=== PATIENT | female | born 1950 | race Caucasian/White ===

== ENCOUNTER 2018-02-10 09:30 | Inpatient (IN) ==
--- NOTE | 2018-02-17 06:49 | MH ---
cc: Johnson Cordon MD, Rohit K MD Lee, Chee DATE OF ADMISSION: 02/17/2018 ADMITTING DIAGNOSIS: Lumbar degenerative disk disease. HISTORY OF PRESENT ILLNESS: This is a 67-year-old female who presented to us for evaluation of low back pain and left leg pain. She states that at her last evaluation on 09/15/2017 we referred her to physical therapy, and she states that this exacerbated her pain. Again, she states that she has previously had surgery in 2014, which was an L4 to S1 lumbar fusion with bilateral instrumentation. She states the surgery was done in [place] and she did well after the surgery until about 2 years ago. She states that 2 years ago, she moved from [place] to [place] and was doing a lot of painting of trim which required a lot of bending for long periods of time and she states that she had difficulty standing after or walking after this. She states that she wore a back brace and the pain eventually settled down, but she has continued to have low back pain. She states that she moved to [facility] and had previously lived in [place] for 5 years and had pain management with a physician in [place]. She states that she would have 1 injection every 3 months for the last 2 years and they eventually recommended a spinal stimulator because the injections were no longer helping. She states that in 03/2017, she was spending time with her brother, doing a lot of walking and at night she had pins and needles in her arms and legs. She complains of pain in bilateral buttocks radiating into the posterior left lateral leg and stabbing sensation on top of her left foot. She states that if she lies down she has improvement and other times she has severe pain and even sitting will exacerbate it. She recently attended physical therapy and states that this aggravated her symptoms, especially at nighttime. She states that she has increased stabbing pain in the calf and foot area. She is wanting to proceed with surgical intervention. PAST MEDICAL HISTORY: Significant for lumbar fusion, hyperlipidemia, hypothyroidism, gastroesophageal reflux disease, migraines. CURRENT MEDICATIONS: 1. Alrex 0.2% eye drops. 2. Atorvastatin 40 mg. 3. Dicyclomine 10 mg. 4. Furosemide 40 mg. 5. Levothyroxine 150 mcg. 6. Metoprolol ER. 7. Omeprazole 20 mg. 8. Potassium chloride 20 mEq. 9. Sumatriptan 50 mg. 10. Tramadol 50 mg. 11. Tizanidine 4 mg. 12. Triamterene 37.5/hydrochlorothiazide 25 mg. ALLERGIES: SHE IS ALLERGIC TO COBALT MOLD NEOMYCIN SULFA AND THIMEROSAL. FAMILY HISTORY: Her father is at age 79, had COPD. Her mother is at 78, had congestive heart failure. Her sister is at 69, had congestive heart failure and COPD. SOCIAL HISTORY: She is a former smoker. She quit in 1987. PAST SURGICAL HISTORY: She has had carpal tunnel surgery in 2015, lumbar spinal fusion L4 to S1 in 2004, right foot neuroma removal in 2014, left hip surgery in 2011, thyroid surgery in 1968 and 2008, left wrist surgery in 2002 and 2007, right knee arthroscopy in 2004. REVIEW OF SYSTEMS: CONSTITUTIONAL: She denies any fever or chills. EARS, NOSE AND THROAT: No pharyngitis exudates or bloody drainage from her nose. CARDIOVASCULAR: She denies any chest pain or palpitations. RESPIRATORY: No cough or shortness of breath. GASTROINTESTINAL: No nausea, vomiting, or abdominal pain. GENITOURINARY: No dysuria, hematuria. MUSCULOSKELETAL: Positive for low back pain. SKIN: No rashes or pruritus. NEUROLOGIC: No difficulty with speech or memory. GASTROINTESTINAL: No nausea, vomiting, abdominal pain. HEMATOLOGIC: No bruising or bleeding tendencies. ENDOCRINE: No polyuria or polydipsia. PHYSICAL EXAMINATION: HEENT: Head is normocephalic, atraumatic. NECK: Supple. No carotid bruits. LUNGS: Clear to auscultation bilaterally. HEART: Regular rate and rhythm. Normal S1, S2. ABDOMEN: Soft, nontender, positive bowel sounds. SKIN: No cyanosis or edema. MUSCULOSKELETAL: She has 5/5 strength in the lower extremities. She ambulates without any assistive device. NEUROLOGIC: She is awake, alert, and oriented. Cranial nerves 2-12 appear grossly intact. Speech is fluent. Comprehension is good. IMPRESSION: A 67-year-old female with a chronic history of low back pain with radiation to bilateral buttocks and left posterior thigh and calf and dorsal aspect of the left foot. She has a history of L4 to S1 bilateral pedicle screw fixation with fusion and interbody cage placement in [place], [place] in 2014. Her symptoms did improve, but not completely resolve subsequent to her surgery and worsened for the past year or so. She has been to physical therapy, which exacerbated her pain. She has also undergone pain management, which also did not help. She has a previous L4-S1 fusion with pedicle screws and cages in place. She has adjacent segment disk disease with L3-L4 spinal stenosis from a combination of central disk herniation and facet hypertrophy along with degenerative disk disease. She also has degenerative changes at the disk at L2-L3 with no significant spinal stenosis. She is requesting surgical intervention for her lumbar spine since she has tried conservative treatment measures and has failed these. PLAN: We have discussed treatment options with the patient, which include continued conservative measures versus surgical intervention. The patient states that she has tried conservative treatment measures with physical therapy and pain management and she is currently miserable with her level of discomfort. She has requested to proceed with surgical intervention. The patient is wanting to proceed with a lumbar fusion. We have discussed with her an L3-L4 interbody fusion with cage and pedicle screw fixation with removal of her L4 to S1 pedicle screws. The procedure as well as the risks, benefits, alternatives, and recovery time were explained in great detail with the patient. We discussed the risks involved with surgery to include, but not limited to bleeding, infection, muscle weakness, voice hoarseness, difficulty swallowing, heart attack, stroke, blood clots, nonfusion, scar tissue formation, among others. The patient states that she understands the procedure as well as the risks of all that she has requested to proceed and she was therefore scheduled accordingly. Dictated by FELICIA Hinojosa MD DEBBIE BarkleyK/ct , 06:17 PM , 06:33 PM
[2018-02-17] MEDS ORDERED: Sodium Chlor 0.9% Inj 500 ML IV.SIG SCH (07:00)
[2018-02-17] MEDS ORDERED: Metoprolol Tartrate 25 MG Tablet PO SCH (07:00)
[2018-02-17] MEDS ORDERED: ceFAZolin 2 GM Premix Inj 2 GM/100 ML BAG IV.SIG SCH (07:00)
[2018-02-17] MEDS ORDERED: Chlorhexidine Gluconate 2% 1 Pack (2 Cloths) TOPICAL SCH (07:00)
[2018-02-17] MEDS ORDERED: Lidocaine PF 1% Inj 5 ML Syringe INFILTRATN ONE ×2 (08:30)
[2018-02-17] MEDS ORDERED: Bupivacaine/Epinephrine 0.5% Inj 50 ML Vial ONE (08:35)
[2018-02-17] MEDS ORDERED: Thrombin Topical Soln 5,000 UNIT Vial TOPICAL ONE (08:35)
[2018-02-17] MEDS ORDERED: Gelatin Size 100 Topical Foam ONE (08:35)
[2018-02-17] MEDS ORDERED: Glycopyrrolate Inj 1 MG/5 ML Syringe IV.PUSH ONE (11:30)
[2018-02-17] MEDS ORDERED: Neostigmine Inj 5 MG/5 ML Syringe IV.PUSH ONE (11:30)
[2018-02-17] MEDS ORDERED: Phenylephrine/NS 1000 MCG/10ML Syringe OTHER ONE (11:30)
[2018-02-17] MEDS ORDERED: Potassium Chlor 20 mEq Premix 20 MEQ/100 ML PIGGYBACK IV.SIG PRN (12:13)
[2018-02-17] MEDS ORDERED: Aluminum/Magnesium/Simethacone Susp 30 ML UDC PO PRN (12:13)
[2018-02-17] MEDS ORDERED: Bisacodyl 10 MG Supp RECTAL PRN (12:13)
[2018-02-17] MEDS ORDERED: Acetaminophen 325 MG Tablet PO PRN (12:13)
[2018-02-17] MEDS ORDERED: Magnesium Sulfate Inj 2 GM in Sodium Chlor 0.9% Inj 96 ML IV.SIG PRN (12:13)
--- NOTE | 2018-02-17 12:29 | P.OP ---
- Preoperative Diagnosis (1) Disc degeneration, lumbar (2) Lumbar stenosis with neurogenic claudication (3) Facet arthropathy, lumbar (4) Fusion of lumbosacral spine (5) Failed back syndrome of lumbar spine (6) Instrumentation failure of anterior column of spine Date of procedure: 02/17/18 Procedure: Lumbar L3-4 transforaminal decompression with interbody fusion; removal of malpositioned left L4-S1 pedicle screws; L3-4 pedicle screw fixation; L3-4 interbody cage placement; microsurgical technique Anesthesia: GETA Surgeon: Johnson Cordon MD Preparation Department Supervisor: Marianna Kingsley Estimated blood loss (mL): 150 Operation and Findings: Following initiation of general endotracheal anesthesia, the patient had a Benavidez catheter placed along with sequential compression devices. A gram of Ancef was administered intravenously and he was turned in a prone position on a Damon frame, on a Crow table, and all pressure points adequately padded. The lumbosacral region was then prepped with Chloraprep and sterilely draped with Ioban along the usual sterile draping. A midline skin incision using the previous incision site was then made extending from the L3-S1 levels after infiltrating the skin with 0.5% Marcaine with epinephrine solution extending down through the fascia. The muscle fibers were split using avascular fatty plane and detached from the underlying facets, transverse process and lateral portion of lamina on the left side L3-4 levels and a self-retaining retractor used for exposure. Intraoperative fluoroscopy was also used for level of confirmation along with microscope magnification for further dissection. There was significant facet and ligamentum flavum hypertrophy noted at the L3-4 level. Left L3-4 facet was resected with a drill bit along with the lamina and there was severe foraminal and lateral recess stenosis from hypertrophied ligamentum flavum and facet which were decompressed. There was disc degeneration along with disc protrusion also leading to the foraminal stenosis. Epidural hemostasis was achieved with bipolar cautery and Gelfoam with thrombin. Subsequently entered into the disc space at the L3-4 level with a # 15 blade and glenna were used for discectomy. I then placed PEEK cage packed with local autograft bone and more local autograft bone was packed adjacent to the cage in interspace for added interbody fusion. With placement of the cage, I was able to distract the interspace and opened up the foramen further bilaterally. Patient had a previous history of L4-5 and L5-S1 interbody and posterior lateral fusion with bilateral pedicle screw fixation. The left L4 pedicle screw was malpositioned and lateral to the pedicle/vertebral body. The left L4, L5 and S1 pedicle screws were then removed and solid fusion was confirmed. Subsequently in order to facilitate the fusion and provide stabilization, pedicle screw fixation was undertaken using [place] spine screws on entry point at the left L3 and the more medial trajectory at the left L4 undertaken at the junction of the transverse process and facet. Subsequently using AP and lateral fluoroscopy tap and screw placement. The screws were then connected with a ean and locked in place with caps. The construct appeared very secure at this point. The area was then copiously irrigated with Vancomycin solution and powder. The retractors were removed and the bipolar cautery used for hemostasis. The muscle fascia was then approximated using 2-0 Vicryl interrupted stitches and then 3-0 Vicryl subcuticular stitches also placed in interrupted fashion. The final skin closure was completed with john. A sterile dressing was then applied. The patient then turned in supine position, extubated and taken to recovery room. There were no intraoperative complications. All sponge and needle counts were correct at the end of procedure. Estimated blood loss about 150 ml.
[2018-02-17] MEDS ORDERED: fentaNYL Citrate Inj 100 MCG/2 ML Ampul ONE (12:47)
[2018-02-17] MEDS ORDERED: *Meperidine Inj 25 MG/ML Vial PERIprocedural Use ONLY ONE (13:17)
[2018-02-17 13:22] LABS: Baso % (Auto) 0.6 % (0.0-2.0); Eos # (Auto) 0.1 th/mm3 (0.0-0.4); Eos % (Auto) 1.4 % (0.0-4.0); Hematocrit 31.3 % (35.0-46.0); Hemoglobin 10.7 gm/dL (11.6-15.3); Lymph # (Auto) 1.6 th/mm3 (1.0-4.8); Lymph % (Auto) 22.4 % (9.0-44.0); Mean Corpuscular HGB Conc 34.3 % (32.0-36.0); Mean Corpuscular Hemoglobin 31.5 pg (27.0-34.0); Mean Corpuscular Volume 91.8 fL (80.0-100.0); Mean Platelet Volume 8.2 fL (7.0-11.0); Mono # (Auto) 0.4 th/mm3 (0.0-0.9); Mono % (Auto) 5.9 % (0.0-8.0); Neut # (Auto) 4.9 th/mm3 (1.8-7.7); Neut % (Auto) 69.7 % (16.0-70.0); Platelet Count 208 th/mm3 (150-450); Red Cell Distribution Width 15.4 % (11.6-17.2)
[2018-02-17 13:40] LABS: Calcium 7.4 mg/dL (8.5-10.1); Carbon Dioxide 33.6 meq/L (21.0-32.0); Magnesium 2.2 mg/dL (1.5-2.5)
--- NOTE | 2018-02-17 13:51 | XR ---
EXAM DATE: 02/17/2018 1:06 PM EDT AGE/SEX: 67 years / Female INDICATIONS: Fusion L3,L4 with screws and ean placement and removal of screws and ean from L4 to S1 with replacement of the L4 screw. CLINICAL DATA: This is the patient's initial encounter. Patient reports that signs and symptoms have been present for 1 day and indicates a pain score of Nonresponsive. MEDICAL/SURGICAL HISTORY: None. Fusion, lumbar. COMPARISON: No prior exams available for comparison. FINDINGS: Patient is status post lumbar spinal surgery with fusion. There appear to be pedicular screws on the left at L3 and L4. There are pedicular screws on the right at L4, L5 and S1. The hardware appears to be intact. There is good alignment of the lower lumbar spine and fusion. CONCLUSION: Good position and alignment on this postoperative study. Electronically signed by: Shahbaz Vaughn MD 02/17/2018 1:50 PM EDT
[2018-02-17] MEDS ORDERED: METRONIDAZOLE 1% TOPICAL PRN (14:00)
[2018-02-17 14:04] LABS: Total Protein 5.9 g/dL (6.4-8.2)
[2018-02-17 14:10] LABS: Potassium 2.6 meq/L (3.5-5.1)
[2018-02-17] MEDS: Morphine Inj 4 MG/ML Vial IV.PUSH PRN (17:06)
[2018-02-17] MEDS: Potassium Chlor 20 mEq Premix 20 MEQ/100 ML PIGGYBACK IV.SIG SCH ×2 (17:07→22:10)
[2018-02-17] MEDS ORDERED: Zolpidem Tartrate 5 MG Tablet PO PRN (21:00)
[2018-02-17] MEDS: Senna/Docusate Sodium 8.6/50 MG Tablet PO SCH (22:02)
[2018-02-18] MEDS: Levothyroxine 150 MCG Tablet PO SCH (06:11)
[2018-02-18] MEDS: Menthol 5.8 MG Lozenge BUCCAL PRN (06:13)
[2018-02-18 07:58] LABS: Calcium 7.3 mg/dL (8.5-10.1); Carbon Dioxide 32.8 meq/L (21.0-32.0); Potassium 4.3 meq/L (3.5-5.1)
[2018-02-18] MEDS: Senna/Docusate Sodium 8.6/50 MG Tablet PO SCH ×2 (08:44→21:04)
[2018-02-18] MEDS: Pantoprazole Sodium 20 MG DR Tablet PO SCH (08:45)
[2018-02-18] MEDS: Furosemide 40 MG Tablet PO SCH (08:55)
[2018-02-18] MEDS ORDERED: TRIAMTERENE 25 MG PO SCH (09:00)
--- NOTE | 2018-02-18 09:35 | P.PNNS ---
Subjective Interval history: Pt s/p Lumbar L3-4 transforaminal decompression with interbody fusion; removal of malpositioned left L4-S1 pedicle screws; L3-4 pedicle screw fixation; L3-4 interbody cage placement on 02/18/18. She complains of migraine headache and states she takes medication for this and was just given some by RN. No radiculopathy or paresthesias in LEs. She complains of incision pain but controlled with pain medication. <Main Cespedes - Last Filed: 02/18/18 09:26> Physical Exam Vital signs: Vital Signs 02/17/18 12:41 02/17/18 12:45 02/17/18 13:00 Temperature 97.4 F L Pulse Rate 67 68 73 Respiratory Rate 12 15 16 Blood Pressure 111/53 L 105/55 L 134/61 Pulse Oximetry 100 100 100 02/17/18 13:15 02/17/18 13:30 02/17/18 14:00 Temperature 97.1 F L Pulse Rate 70 70 72 Respiratory Rate 16 15 17 Blood Pressure 118/57 L 118/57 L 137/67 Pulse Oximetry 100 100 100 02/17/18 15:00 02/17/18 15:08 02/17/18 15:36 Temperature Pulse Rate 79 83 Respiratory Rate 22 12 18 Blood Pressure 135/77 129/64 Pulse Oximetry 94 L 97 02/17/18 16:00 02/17/18 20:00 02/17/18 21:33 Temperature 98.3 F 98.7 F Pulse Rate 81 91 H Respiratory Rate 17 17 Blood Pressure 104/55 L 116/70 Pulse Oximetry 99 98 97 02/17/18 22:02 02/18/18 00:00 02/18/18 04:00 Temperature 97.9 F 99.1 F Pulse Rate 54 L 95 H Respiratory Rate 18 17 17 Blood Pressure 111/56 L 117/58 L Pulse Oximetry 98 97 02/18/18 06:11 Temperature Pulse Rate Respiratory Rate 18 Blood Pressure Pulse Oximetry Intake & Output 02/17/18 02/18/18 02/18/18 18:59 06:59 18:59 Intake Total 2578 / 2578 1022 / 1022 1000 / 1000 Output Total 1000 / 1000 Balance 1578 / 1578 1022 / 1022 1000 / 1000 Weight 90.7 kg Intake: IV 1578 / 1578 1022 / 1022 1000 / 1000 NS + KCl 20 mEq Inj 1,000 ML @ 278 / 278 722 / 722 1000 / 1000 100 mls/hr IV.CONT .Q10H JOSEF Rx #:[id number] LR 1000 mL Inj 1,000 ML @ 30 1000 / 1000 mls/hr IV.SIG .Q24H JOSEF Rx#: [id number] KCl 20 mEq Premix Inj 20 meq In 100 / 100 200 / 200 100 ml @ 50 mls/hr IV.SIG Q2H JOSEF Rx#:[id number] Ancef 2 GM Premix Inj 2 gm In 100 / 100 100 ml @ 200 mls/hr IV.SIG [employer] JOSEF Rx#:[id number] Ancef Inj 1,000 MG In NS Inj 100 / 100 100 / 100 100 ML @ 200 mls/hr IV.SIG Q8H JOSEF Rx#:[id number] Anesthesia Amount 1000 / 1000 Output: Estimated Blood Loss 100 / 100 Urine Amount (Catheter) 900 / 900 Indwelling Urethral Catheter 900 / 900 Other: Date of Last Bowel Movement 02/16/18 02/16/18 Weight On Admission 90.7 kg - Constitutional no acute distress - Routine HEENT Exam Head: Present: normocephalic, atraumatic Eye: Present: PERRL. Absent: conjunctival icterus ENT: Present: oropharynx clear - Routine Neck Exam Present: trachea midline - Routine Respiratory Exam Present: CTA bilaterally. Absent: respiratory distress, rhonchi, wheezes - Routine Cardiovascular Exam Present: RRR, S1, S2. Absent: murmur - Routine Abdominal Exam Present: soft, normoactive bowel sounds. Absent: tenderness, distended - Routine Skin Exam Absent: cyanosis, erythema Comments: Incision is clean and dry with john in place. New bandage applied. - Routine Neurological Exam Present: alert, oriented X3, moving all extremities, normal speech. Absent: sensory deficit, motor deficit, altered mental status - Detailed Neurological Exam: Coma Scale Eye Opening: Spontaneous Verbal Response: Oriented Motor Response: Obey commands Azri Coma Scale Total: 15 - Routine Psychiatric Exam Present: normal affect, cooperative. Absent: agitated - Urinary Catheter Management Indwelling Urethral Catheter Cath placed during this visit: yes Reason for continuing: Other continuation reason Insertion date: 02/17/18 Insertion time: 08:40 <Main Cespedes - Last Filed: 02/18/18 09:26> Vital signs: Vital Signs 02/17/18 20:00 02/17/18 21:33 02/17/18 22:02 Temperature 98.7 F Pulse Rate 91 H Respiratory Rate 17 18 Blood Pressure 116/70 Pulse Oximetry 98 97 02/18/18 00:00 02/18/18 04:00 02/18/18 06:11 Temperature 97.9 F 99.1 F Pulse Rate 54 L 95 H Respiratory Rate 17 17 18 Blood Pressure 111/56 L 117/58 L Pulse Oximetry 98 97 02/18/18 08:00 02/18/18 12:00 02/18/18 16:00 Temperature 99.3 F 99 F 98.7 F Pulse Rate 94 H 87 84 Respiratory Rate 16 18 18 Blood Pressure 131/68 137/62 119/55 L Pulse Oximetry 94 L 96 91 L Intake & Output 02/18/18 02/18/18 02/19/18 06:59 18:59 06:59 Intake Total 1022 / 1022 1340 / 1340 Output Total 600 / 600 Balance 1022 / 1022 740 / 740 Intake: IV 1022 / 1022 1100 / 1100 NS + KCl 20 mEq Inj 1,000 ML @ 722 / 722 1000 / 1000 100 mls/hr IV.CONT .Q10H JOSEF Rx #:[id number] KCl 20 mEq Premix Inj 20 meq In 200 / 200 100 ml @ 50 mls/hr IV.SIG Q2H JOSEF Rx#:[id number] Ancef Inj 1,000 MG In NS Inj 100 / 100 100 / 100 100 ML @ 200 mls/hr IV.SIG Q8H JOSEF Rx#:[id number] Oral 240 / 240 Output: Urine 600 / 600 Other: Date of Last Bowel Movement 02/16/18 02/16/18 - Urinary Catheter Management Indwelling Urethral Catheter Cath placed during this visit: no <Johnson Cordon - Last Filed: 02/18/18 19:59> Assessment and Plan - Assessment (1) Disc degeneration, lumbar Code(s): M51.36 - Other intervertebral disc degeneration, lumbar region Status : Acute (2) Lumbar stenosis with neurogenic claudication Code(s): M48.062 - Spinal stenosis, lumbar region with neurogenic claudication Status: Acute (3) Facet arthropathy, lumbar Code(s): M47.816 - Spondylosis without myelopathy or radiculopathy, lumbar region Status: Acute (4) Fusion of lumbosacral spine Code(s): M43.27 - Fusion of spine, lumbosacral region Status: Acute (5) Failed back syndrome of lumbar spine Code(s): M96.1 - Postlaminectomy syndrome, not elsewhere classified Status: Acute (6) Instrumentation failure of anterior column of spine Code(s): T84.216A - Breakdown (mechanical) of internal fixation device of vertebrae, initial encounter Status: Acute - Plan Pt s/p Lumbar L3-4 transforaminal decompression with interbody fusion; removal of malpositioned left L4-S1 pedicle screws; L3-4 pedicle screw fixation; L3-4 interbody cage placement; microsurgical technique on 02/17/18. Overall doing well with incisional pain controlled and no radiculopathy or paresthesias in LEs. States she didn't sleep well last night and has a migraine this morning. She has a sleeping pill ordered if needed and advised pt of this if she has difficulty again tonight. Continue with PT increase activity. lumbar brace ordered with [employer], since pt forgot hers and her will not be by till later today. Advised pt to call office at discharge to have john removed 12 days post op since its a redo incision. <Main Cespedes - Last Filed: 02/18/18 09:26> - Attending Attestation The exam, history, and the medical decision-making described in the above note were completed with the assistance of the mid-level provider. I reviewed and agree with the findings presented. I attest that I had a [id number] encounter with the patient on the same day, and personally performed and documented my assessment and findings in the medical record. <Johnson Cordon - Last Filed: 02/18/18 19:59>
[2018-02-18] MEDS: Morphine Inj 4 MG/ML Vial IV.PUSH PRN (15:27)
[2018-02-18] MEDS ORDERED: SODIUM CHLOR 0.9% IV.SIG PRN (16:00)
[2018-02-18] MEDS ORDERED: CALCIUM CHLORIDE IV.SIG PRN (16:00)
[2018-02-19] MEDS: Levothyroxine 150 MCG Tablet PO SCH (05:53)
[2018-02-19 08:00] LABS: Calcium 7.7 mg/dL (8.5-10.1); Carbon Dioxide 31.9 meq/L (21.0-32.0); Potassium 4.2 meq/L (3.5-5.1)
[2018-02-19] MEDS: Menthol 5.8 MG Lozenge BUCCAL PRN (08:39)
--- NOTE | 2018-02-19 09:42 | P.PNNS ---
Subjective Interval history: No issues overnight. Patient reports expected amount of postoperative discomfort, but medications are helping her with that. Benavidez is out. Physical Exam Vital signs: Vital Signs 02/18/18 12:00 02/18/18 16:00 02/18/18 19:00 Temperature 99 F 98.7 F Pulse Rate 87 84 Respiratory Rate 18 18 18 Blood Pressure 137/62 119/55 L Pulse Oximetry 96 91 L 02/18/18 19:54 02/18/18 23:07 02/19/18 01:37 Temperature 98.9 F 98.7 F Pulse Rate 81 88 Respiratory Rate 17 18 18 Blood Pressure 92/50 L 111/59 L Pulse Oximetry 94 L 97 02/19/18 03:08 02/19/18 03:52 02/19/18 04:43 Temperature 98.2 F Pulse Rate 81 Respiratory Rate 18 18 17 Blood Pressure 112/54 L Pulse Oximetry 96 Intake & Output 02/18/18 02/19/18 02/19/18 18:59 06:59 18:59 Intake Total 2340 / 2340 360 / 360 Output Total 600 / 600 1050 / 1050 Balance 1740 / 1740 -690 / -690 Weight 95.2 kg Intake: IV 2100 / 2100 NS + KCl 20 mEq Inj 1,000 ML @ 2000 / 2000 100 mls/hr IV.CONT .Q10H JOSEF Rx #:[id number] Ancef Inj 1,000 MG In NS Inj 100 / 100 100 ML @ 200 mls/hr IV.SIG Q8H JOSEF Rx#:[id number] Oral 240 / 240 360 / 360 Output: Urine 600 / 600 Urine Amount (Catheter) 1050 / 1050 Indwelling Urethral Catheter 1050 / 1050 Other: Date of Last Bowel Movement 02/16/18 02/16/18 # Bowel Movements 0 - Routine Neurological Exam Alert and conversant. Follows commands appropriately. Normal strength and sensation in both lower extremities. - Urinary Catheter Management Indwelling Urethral Catheter Cath placed during this visit: yes, but has since been removed by the nurse Reason for continuing: Decision to DC catheter Insertion date: 02/17/18 Insertion time: 08:40 Removal date: 02/19/18 Removal time: 05:56 Assessment and Plan - Plan Pt s/p Lumbar L3-4 transforaminal decompression with interbody fusion; removal of malpositioned left L4-S1 pedicle screws; L3-4 pedicle screw fixation; L3-4 interbody cage placement; microsurgical technique on 02/17/18. She appears to be doing much better over the last 24 hours than she had been previously. Pain control appears reasonably good. Slept okay, eating breakfast this morning, looking forward to mobilizing. She has her back brace, and knows to wear it when she is up and moving. Continue to work with PT to increase activity. Possible discharge home if she has a good day today. Pt to call office at discharge to have john removed 12 days post op since its a redo incision.
[2018-02-19] MEDS: Pantoprazole Sodium 20 MG DR Tablet PO SCH (10:13)
[2018-02-19] MEDS: Senna/Docusate Sodium 8.6/50 MG Tablet PO SCH (10:13)
[2018-02-19] MEDS: Furosemide 40 MG Tablet PO SCH (10:13)
[2018-02-19] MEDS: Morphine Inj 4 MG/ML Vial IV.PUSH PRN (13:50)
[2018-02-20] MEDS: Senna/Docusate Sodium 8.6/50 MG Tablet PO SCH ×2 (00:41→08:30)
[2018-02-20] MEDS: Levothyroxine 150 MCG Tablet PO SCH (06:01)
[2018-02-20 06:13] VITALS: TEMP 98.2
[2018-02-20] MEDS: Furosemide 40 MG Tablet PO SCH (08:32)
[2018-02-20] MEDS: Pantoprazole Sodium 20 MG DR Tablet PO SCH (08:32)
--- NOTE | 2018-02-20 10:23 | P.PNNS ---
Subjective Interval history: No issues overnight. Did a good amount of walking. Feels ready to leave for home today. Physical Exam Vital signs: Vital Signs 02/19/18 11:00 02/19/18 12:00 02/19/18 13:51 Temperature 98.5 F Pulse Rate 83 Respiratory Rate 18 16 16 Blood Pressure 123/58 L Pulse Oximetry 98 02/19/18 16:00 02/19/18 20:00 02/19/18 20:44 Temperature 98.1 F 98.7 F Pulse Rate 83 89 Respiratory Rate 16 18 18 Blood Pressure 130/62 122/58 L Pulse Oximetry 96 94 L 02/20/18 00:00 02/20/18 00:30 02/20/18 04:00 Temperature 98.4 F 98.2 F Pulse Rate 87 74 Respiratory Rate 16 17 18 Blood Pressure 108/54 L 94/75 L Pulse Oximetry 95 97 Intake & Output 02/19/18 02/20/18 02/20/18 18:59 06:59 18:59 Intake Total 1800 / 1800 480 / 480 Output Total 300 / 300 Balance 1500 / 1500 480 / 480 Weight 95.7 kg Intake: Oral 1800 / 1800 480 / 480 Output: Urine 300 / 300 Other: # Voids 1 2 Date of Last Bowel Movement 02/18/18 02/18/18 # Bowel Movements 0 - Routine Neurological Exam Alert and conversant. Normal strength throughout. Follows all commands appropriately 4. - Urinary Catheter Management Indwelling Urethral Catheter Cath placed during this visit: yes, but has since been removed by the nurse Reason for continuing: Decision to DC catheter Insertion date: 02/17/18 Insertion time: 08:40 Removal date: 02/19/18 Removal time: 05:56 Assessment and Plan - Plan Pt s/p Lumbar L3-4 transforaminal decompression with interbody fusion; removal of malpositioned left L4-S1 pedicle screws; L3-4 pedicle screw fixation; L3-4 interbody cage placement; microsurgical technique on 02/17/18. She is doing well and feels ready for discharge, which I think is reasonable. Dr. Cordon had planned to release her today if she was doing this well. I placed her discharge order this morning. Pt to call office on Wednesday to have john removed 12 days post op since its a redo incision.
[2018-02-20 11:11] VITALS: BP 116/55; PULSE 80; RESP 14; O2SAT 92
--- NOTE | 2018-03-21 13:08 | P.DS ---
Date of admission: 02/17/18 06:05 Primary care physician: Anyi Mena MD Attending physician on discharge: Johnson Cordon Brief History from admission: This is a 67 y/o FM who presented to us for an evaluation of low back pain and left leg pain. She states that at her last evaluation on 09/15/17 we referred her to physical therapy, ansd she states that this exacerbated her pain. Again , she states that she has previously had surgery in 2014, which was an L4 to S1 lumbar fusion with bilateral instrumentation. She states the surgery was done in [place] and she did well after the surgery until about 2 years ago. 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 She states that she wore a back brace and the pain eventually settled down, but she has continued to have low back pain. She states that she moved to [facility] and had previously lived in [place] for 5 years and had pain management with a physician in [place]. She states that she would have 1 injection every 3 months for the last 2 years and they eventually recommended a spinal stimulator because the injections were no longer helping. She states that in 03/2017, she was spending time with her brother, doing a lot of walking and at night she had pins and needles in her arms and legs. She complains of pain in bilateral buttocks radiating into the posterior left lateral leg and stabbing sensation on top of her left foot. She states that if she lies down she has improvement and other times she has severe pain and even sitting will exacerbate it. She recently attended physical therapy and states that this is aggravated her symptoms, especially at nighttime. She states that she has increased stabbing pain in the calf and foot area. She is wanting to proceed with surgical intervention. 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 Postoperatively she was admitted to the medical surgical floor. Pain was controlled. PT was consulted and her activity status was increased. Pt was discharged home in stable condition. - Time Spent with Patient Total time spent providing and/or coordinating discharge services: Less than 30 minutes - Quality: VTE Deep Vein Thrombosis/Pulmonary Embolism Present on Admission: No Results Procedures completed during hospitalization: Lumbar L3-4 transforaminal decompression with interbody fusion; removal of malpositioned left L4-S1 pedicle screws; L3-4 pedicle screw fixation; L3-4 interbody cage placement; microsurgical technique on 02/17/18 By Johnson Cordon M.D. - Impressions ITS Impressions Lumbar Spine X-Ray 02/17/18 00:00 CONCLUSION: Good position and alignment on this postoperative study. Discharge Plan - Discharge Disposition Patient Disposition: Discharge Home - Discharge Order Discharge Orders: Discharge Order (Routine); Ordered 02/20/18 Ordered By: Tamir Walton - Physicians Team Primary Care Provider: Anyi Mena Attending Provider: Johnson Cordon - Rxs /Orders / Referrals /Forms Prescriptions: New hydrocodone-acetaminophen [[place]] 10-325 mg Tablet 1 tab PO Q4H PRN (Reason: Pain) Qty: 60 RF: 0 Continue albuterol sulfate [ProAir HFA] 90 mcg/actuation Hfa Aerosol Inhaler 2 puff INHALATION Q4-6H PRN (Reason: Shortness Of Breath Or Wheezing) atorvastatin 40 mg Tablet 40 mg PO DAILY cholecalciferol (vitamin D3) [Vitamin D3] 5,000 unit Tablet 5,000 unit PO DAILY cyanocobalamin (vitamin B-12) [Vitamin B-12] 2,000 mcg Tablet Extended Release 2,000 mcg PO DAILY dicyclomine 20 mg Tablet 20 mg PO TID furosemide 40 mg Tablet 40 mg PO DAILY levothyroxine 150 mcg Tablet 150 mcg PO DAILY metoprolol succinate 25 mg Tablet Extended Release 24 Hr 25 mg PO DAILY metronidazole 1 % Cream 1 applic TOPICAL DAILY PRN (Reason: Itching) omeprazole 20 mg Capsule,Delayed Release(Dr/Ec) 20 mg PO DAILY sumatriptan succinate 50 mg Tablet 50 mg PO Q2-4H PRN (Reason: Headache) tizanidine 4 mg Capsule 4 mg PO TID PRN (Reason: Spasms) Qty: 60 tramadol 50 mg Tablet 100 mg PO Q6H triamterene 50 mg Capsule 25 mg PO DAILY Referrals: Anyi Mena MD [Primary Care Provider] - See Instructions - Discharge Instructions Patient Printed Instructions: Hydrocodone/Acetaminophen (By mouth), Laxative, Stool Softeners (By mouth), Laminectomy (DC), How to Choose and Use a Walker ( GEN), Narcotic Pain Management (DC), Back Pain (ED), Fall Prevention (DC), Lumbar Brace (DC) Additional Instructions: Keep or make your follow up appointments as directed by your providers. Take medications as directed. Continue to wear lumbar brace when out of bed as directed. Keep surgical incision clean and dry. - Post Discharge Care Plan Care Plan Goals: Your Health Problems: Goals to Promote Your Health: * To prevent worsening of your condition * To maintain your health at the optimal level Directions to Meet Your Goals: * Take your medications as prescribed * Follow your dietary instruction * Follow activity as directed * Keep your appointments as scheduled * Take your immunizations and boosters as scheduled * If your symptoms worsen call your PCP * If no PCP go to Urgent Care or Emergency Room Smoking is dangerous to your health. Avoid second hand smoke. You may reach the 24-hour crisis hotline for domestic abuse at .
== END 2018-02-20 15:20 | disposition home or self-care (01) ==
LOC: HSDI 02-17 06:05 → N06 02-17 16:00
PROVIDERS: ADMIT Neurological Surgery; ATTEND Neurological Surgery